=== PATIENT | female | born 1950 | race Caucasian/White ===

== ENCOUNTER → 2017-05-31 | Outpatient (CLI) | payer MEDICARE ==
[~2017-05-31] MED LIST: CALCIUM 1500 MG; CETI5; CYCL10; HYDACE25S PR; Hair, Skin & N1 EACH PO; Keflex500 MG PO; NAPR500 PO; POLY17UD PO; TRAM50; TRAM50 PO
== END ==
LOC: PLD 11:42 → LAB SHORT 11:42
DX: D23.60 Other benign neoplasm of skin of unspecified upper limb, including shoulder (principal)
CPT/HCPCS: 88305

== ENCOUNTER 2018-05-28 10:42 | Day surgery (SDC) | payer MEDICARE ==
[~2018-05-28] VITALS: Ht 167.6 cm; Wt 76.0 kg
[~2018-05-28 10:42] MED LIST changes: +Aspir 8181 MG PO; +BIOTIN5000 MC1 SL; +DOCU100 PO; +FISH OIL 1,0001 EAC1 PO; +FLAX PO; +IBUP600 PO; +LOSA50 PO; +Lovastatin20 MG PO; +Magnesium500 MG PO; +Red Yeast Rice600 MG PO; +VITAMIN D35000 UNI1 PO; +ZYRTEC10 M1 PO
--- NOTE | 2018-05-28 12:59 | NUR ---
05/28/18 1259 Cheryl Dewitt SIITING UP IN CHAIR, SIPPING JUICE AND EATING CATHERINE CRACKERS AND PUDDING. PP IN PLACE AT BEDSIDE
== END 2018-05-28 13:55 | disposition home or self-care (01) ==
LOC: ORSCSDS 10:42
PROVIDERS: Orthopaedic Surgery
PROC: 0SBC4ZZ Excision of Right Knee Joint, Percutaneous Endoscopic Approach (ICD-10-PCS; principal; 2018-05-28 11:45)
DX: S83.281A Other tear of lateral meniscus, current injury, right knee, initial encounter (principal); M65.9 Synovitis and tenosynovitis, unspecified; I10 Essential (primary) hypertension; Z87.891 Personal history of nicotine dependence; Z79.899 Other long term (current) drug therapy; Z79.82 Long term (current) use of aspirin
CPT/HCPCS: J0171; J0690; J1100; J1885; J2250; J2405; J3010; J7120

== ENCOUNTER 2018-12-11 23:57 | Observation (INO) | payer MEDICARE, OTHER ==
[~2018-12-11] VITALS: Ht 167.6 cm; Wt 77.1 kg
[2018-12-12 00:35] LABS: BASOPHILS ABSOLUTE AUTO 0.04 K/mm3 (0.00-0.23); BASOPHILS PERCENT AUTO 0 % (0-2); EOSINOPHILS ABSOLUTE AUTO 0.02 K/mm3 (0.00-0.68); EOSINOPHILS PERCENT AUTO 0 % (0-6); Hemoglobin 13.5 g/dL (11.5-16.0); IMMATURE GRAN ABSOLUTE AUTO 0.06 K/mm3 (0.00-0.10); IMMATURE GRAN PERCENT AUTO 0 % (0-1); LYMPHOCYTES ABSOLUTE AUTO 1.84 K/mm3 (0.84-5.20); LYMPHOCYTES PERCENT AUTO 12 % (21-46); MONOCYTES ABSOLUTE AUTO 0.52 K/mm3 (0.16-1.47); MONOCYTES PERCENT AUTO 3 % (4-13); Mean Corpuscular HGB 29.7 pg (26.0-34.0); Mean Corpuscular HGB Conc 32.9 g/dL (31.5-36.5); Mean Corpuscular Volume 90 fL (80-100); Mean Platelet Volume 10.6 fL (9.1-12.4); NEUTROPHILS ABSOLUTE AUTO 12.83 K/mm3 (1.96-9.15); NEUTROPHILS PERCENT AUTO 84 % (41-73); Platelet Count 306 K/mm3 (150-400); RDW Coefficient Variation 12.7 % (11.7-14.2); RDW Standard Deviation 41.5 fL (35.1-46.3); Red Blood Cell Count 4.54 M/mm3 (3.80-5.20); White Blood Cell Count 15.31 K/mm3 (4.00-11.30)
[2018-12-12 00:53] LABS: Alanine Aminotransfer (ALT/SGP 32 U/L (12-78); Albumin/Globulin Ratio 1.1 (0.8-1.8); Alk Phos 105 U/L (50-136); Anion Gap 7 mmol/L (6-16); Aspartate Aminotrans (AST/SGOT 23 U/L (12-37); Bilirubin, Total 0.4 mg/dL (0.1-1.0); Blood Urea Nitrogen 17 mg/dL (8-24); Bun/Creatinine Ratio 26.6 (12.0-20.0); CO2, Blood 24 mmol/L (21-32); Calcium, Blood 9.6 mg/dL (8.5-10.1); Chloride, Blood 107 mmol/L (98-108); Creatinine, Blood 0.64 mg/dL (0.40-1.00); Globulin, Blood 3.6 g/dL (2.2-4.0); Glomerular Filtration Rate >60 (60-); Glucose, Blood 149 mg/dL (70-99); Potassium, Blood 3.8 mmol/L (3.5-5.5); Sodium, Blood 138 mmol/L (136-145); Total Protein, Blood 7.6 g/dL (6.4-8.2)
--- NOTE | 2018-12-12 05:29 | NUR ---
PT HERE FROM ER BY VONNIE. TRANSFERRED WITH MULT ASSIST TO BED. PT A/O. PT REPORTS PAIN MUCH BETTER AT THIS TIME. PT REPORTS NAUSEA DOING BETTER AT THIS TIME. PT REPORTS HAVING DRY, SCRATCHY THROAT FROM HAVING DRY HEAVES PREVIOUSLY. PT PPX4, NO SORES NOTED TO HEELS OR BOTTOM. PT EDUCATED STIFF NECK LOADER LIGHT, ROOM, ECT. PT ASSISTED INTO GOWN WITH RN AND [facility] DIRECTOR. PT ASSISTED WITH ADL'S PRN. PT REMINDED OF CONT TO BE NPO.
--- NOTE | 2018-12-12 07:15 | NUR ---
PT AWAKE LAYING IN BED STATED NO ABD PAIN OR NAUSEA PT GIVEN A GALLBLADDER BOOK AWAITING DR FARIAS PLAN FOR OR LATER TODAY NPO INSTRUCTED PT TO CALL IF PAIN OR NAUSEA COMES BACK
--- NOTE | 2018-12-12 10:37 | NUR ---
pt talking with
--- NOTE | 2018-12-12 10:44 | NUR ---
DR FARIAS BY TO SEE PT
--- NOTE | 2018-12-12 11:23 | NUR ---
pt req pain meds 0.5 mg ivp dilaudid given along with zofran pt stated pain is 8/10
[2018-12-12 14:57] LABS: Source, Urine Clean Catch
[2018-12-12 15:03] LABS: Bilirubin, Urine Neg (Neg); Blood, Urine Neg (Neg); Glucose Qualitative, Urine Neg (Neg); Ketones, Urine Neg (Neg); Leukocyte Esterase, Urine 2+ (Neg); Nitrite, Urine Neg (Neg); Protein, Urine Neg (Neg); Specific Gravity, Urine 1.025 (1.003-1.022); Urobilinogen, Urine NORM (Normal)
[2018-12-12 15:08] LABS: Appearance, Urine Clear (Clear); Color, Urine Yellow (P-Yellow)
[2018-12-12 15:09] LABS: White Blood Cells, Urine 25-50 /hpf (0-5)
[2018-12-12 15:10] LABS: Bacteria Few /hpf; Red Blood Cells, Urine 0-2 /hpf (0-2); Squamous Epithelial Cells Few /hpf (Few)
--- NOTE | 2018-12-12 15:27 | NUR ---
offered pt pain meds stated pain is 6/10
--- NOTE | 2018-12-12 17:27 | NUR ---
INTO SDS VIA [facility]. PT REPORTS 09/19 ABDOMINAL PAIN. DENIES NAUSEA AT THIS TIME. HISTORY AND ALLERGIES REVIEWED. NPO STATUS CONFIRMED. LUNGS CLEAR.
--- NOTE | 2018-12-12 18:29 | NUR ---
DR. FARIAS AT BEDSIDE-SURGERY RESCHEDULED FOR TOMORROW. REPORT TO MARVEL CHAUDHARY-PT TRANSFERED BACK TO ROOM 229.
--- NOTE | 2018-12-12 18:46 | NUR ---
pt back to room surg postponed until thur am npo after mn ok for cl
--- NOTE | 2018-12-12 21:21 | NUR ---
2121: 18G PERIPHERAL IV IN LEFT HAND NOT PATENT AND DC'D; INFILTRATION GRADE LESS THAN 1". 2X2 GAUZE APPLIED AND WRAPPED WITH COBAN.
--- NOTE | 2018-12-13 11:59 | NUR ---
PT TO DAY SURGERY AT THIS TIME
--- NOTE | 2018-12-13 13:34 | NUR ---
PT UNABLE TO MAINTAIN O2SATS GREATER THAN 88% WITHOUT SUPPLEMENTAL OXYGEN. PLACED PT ON 2LNC AFTER REPOSITIONING, ENC DBC, CHECKING EQUIPMENT, CHANGING POSTION OF PROBE ETC. EDUCATED IS USE. MED FOR PAIN 10/20. UP TO BATHROOM AT 1336./ REPORT TO PATRICIA. SPOKE TO DR RAMOS REGARDING ITCHY NOSE WITH NARCOTICS.
--- NOTE | 2018-12-13 13:36 | NUR ---
Patient up to Ambulate independently. Gait steady. Surgical site prepped with 2% Chlorhexidine cloth wipe. History, Chart, Medications and Allergies reviewed before start of procedure.Lungs clear T/O to Auscultation. Patient confirms NPO status and agrees with scheduled surgery.DENTURES AND GLASSES LEFT IN ROOM WITH ALL OTHER BELONINGS. DAUGHTER RAEGAN AT BEDSIDE.
--- NOTE | 2018-12-13 13:45 | NUR ---
ASSUMED CARE. PT UP TO BATHROOM WITH SBA, TOLERATED WELL. BACK TO BED RECHECKED SATS ON ROOM AIR, SAT LEVEL 89%, APPLIED 02 2L/NC.
--- NOTE | 2018-12-13 14:28 | NUR ---
12/13/18 1428 Palomo Altamirano PT ON SCHEDULED ANTIBIOTICS
--- NOTE | 2018-12-13 16:04 | NUR ---
POST OP S/P LAP LUCA TODAY. X4 LAP SITES TO ABD WITH STERI STRIPS. SCANT OOZING TO UMBILICAL SITE AND REINFORCED WITH BANDAID. PT REPORTS MINIMAL PAIN AND DENIES N/V. ON 2L VIA NC AND PLANNING TO WEAN OFF. ENC DEEP BREATHING AND I/S IS AT BEDSIDE. OFFERING SIPS OF CLEARS. POST OP VS IN PROGRESS AND STABLE. FAMILY AT BEDSIDE FOR SUPPORT, CALL LIGHT WITHIN REACH.
--- NOTE | 2018-12-14 04:44 | NUR ---
SUMMARY: POD [address] RAMOS. VSS, AFEBRILE, TOLRATING SMALL PORTIONS OF REGULAR DIET AND PASSING MINIMAL AMOUNTS OF FLATUS. PT HAD DIFFICULTY COMPLETELY EMPTYING BLADDER EARLY IN SHIFT BUT AFTER SITTING UP TO CHAIR AND UP IN ROOM PT VOIDING WELL. PAIN WELL CONTROLLED WITH 1-2 TABS PERCOCET AND 1MG DILAUDID. ENCOURAGE AMBULATION IN HALLS AND ANTICIPATE DC HOME LATER THIS DAY.
--- NOTE | 2018-12-14 10:20 | NUR ---
pt up to bathroom then to chair still on o2 will trial off at 1200
--- NOTE | 2018-12-14 12:50 | NUR ---
BIOX RA 91-94% SITTING IN CHAIR
--- NOTE | 2018-12-14 14:28 | NUR ---
PT EMIL IN HALLWAY WITH HER DAUGHTER BACK TO ROOM SITTING UP IN CHAIR
--- NOTE | 2018-12-14 15:35 | NUR ---
dr laboy by to see pt
[2018-12-14] MEDS ORDERED: OXYC5 PO (15:52)
--- NOTE | 2018-12-14 16:21 | NUR ---
DISCHARGE INSTRUCTIONS REVIEWED WITH PT VERBALIZED RX GIVE NO ACUTE CHANGES WC ESCORT TO CAR
== END 2018-12-14 16:32 | disposition home or self-care (01) ==
LOC: ER 23:57 → SURS 23:58
PROVIDERS: Emergency Medicine; Surgery; ADMIT Surgery
PROC: BF13YZZ Fluoroscopy of Gallbladder and Bile Ducts using Other Contrast (ICD-10-PCS; 2018-12-13)
PROC: 0FT44ZZ Resection of Gallbladder, Percutaneous Endoscopic Approach (ICD-10-PCS; principal; 2018-12-13 13:00)
DX: K80.01 Calculus of gallbladder with acute cholecystitis with obstruction (principal); I10 Essential (primary) hypertension; E78.00 Pure hypercholesterolemia, unspecified; Z79.899 Other long term (current) drug therapy; Z88.5 Allergy status to narcotic agent; Z87.891 Personal history of nicotine dependence
CPT/HCPCS: 74176; 74300; 76705; 80053; 81001; 83690; 84484; 85025; 87086; 88304; 93005; 93010; 96361; 96365; 96366; 96375; 96376; 99285; C1729; G0378; J1170; J2250; J2405; J2543; J2550; J2704; J2710; J3010; J7030; J7120

== ENCOUNTER 2019-01-22 07:05 | Day surgery (SDC) | payer MEDICARE ==
[~2019-01-22] VITALS: Ht 167.6 cm; Wt 76.4 kg
[~2019-01-22 07:05] MED LIST changes: +OXYC5 PO
== END 2019-01-22 09:03 | disposition home or self-care (01) ==
LOC: ORSCSDS 07:05
PROVIDERS: Surgery
PROC: 0DJD8ZZ Inspection of Lower Intestinal Tract, Via Natural or Artificial Opening Endoscopic (ICD-10-PCS; principal; 2019-01-22 08:15)
DX: Z12.11 Encounter for screening for malignant neoplasm of colon (principal); Z86.010 Personal history of colon polyps; I10 Essential (primary) hypertension; E78.5 Hyperlipidemia, unspecified; Z87.891 Personal history of nicotine dependence; Z79.82 Long term (current) use of aspirin; Z79.899 Other long term (current) drug therapy
CPT/HCPCS: J0330; J0461; J2405; J2704; J7120

== ENCOUNTER 2020-06-22 15:04 | Emergency (ER) | payer MEDICARE ==
[~2020-06-22] VITALS: Ht 167.6 cm; Wt 74.8 kg
[2020-06-22] MEDS ORDERED: MIRALAX17 GM PO (15:34)
[2020-06-22 15:55] LABS: BASOPHILS ABSOLUTE AUTO 0.06 K/mm3 (0.00-0.23); BASOPHILS PERCENT AUTO 0 % (0-2); EOSINOPHILS ABSOLUTE AUTO 0.02 K/mm3 (0.00-0.68); EOSINOPHILS PERCENT AUTO 0 % (0-6); Hematocrit 36.5 % (33.0-51.0); Hemoglobin 11.6 g/dL (11.5-16.0); IMMATURE GRAN ABSOLUTE AUTO 0.07 K/mm3 (0.00-0.10); IMMATURE GRAN PERCENT AUTO 0 % (0-1); LYMPHOCYTES ABSOLUTE AUTO 1.35 K/mm3 (0.84-5.20); LYMPHOCYTES PERCENT AUTO 8 % (21-46); MONOCYTES PERCENT AUTO 5 % (4-13); Mean Corpuscular HGB 28.9 pg (26.0-34.0); Mean Corpuscular HGB Conc 31.8 g/dL (31.5-36.5); Mean Corpuscular Volume 91 fL (80-100); Mean Platelet Volume 8.8 fL (9.1-12.4); NEUTROPHILS ABSOLUTE AUTO 15.57 K/mm3 (1.96-9.15); NEUTROPHILS PERCENT AUTO 87 % (41-73); Platelet Count 821 K/mm3 (150-400); RDW Coefficient Variation 15.9 % (11.7-14.2); RDW Standard Deviation 51.9 fL (35.1-46.3); Red Blood Cell Count 4.02 M/mm3 (3.80-5.20); White Blood Cell Count 17.97 K/mm3 (4.00-11.30)
[2020-06-22 16:18] LABS: Alanine Aminotransfer (ALT/SGP 27 U/L (12-78); Albumin, Blood 3.2 g/dL (3.4-5.0); Albumin/Globulin Ratio 0.7 (0.8-1.8); Alk Phos 241 U/L (50-136); Anion Gap 6 mmol/L (6-16); Aspartate Aminotrans (AST/SGOT 22 U/L (12-37); Bilirubin, Total 0.7 mg/dL (0.1-1.0); Blood Urea Nitrogen 23 mg/dL (8-24); Bun/Creatinine Ratio 39.1 (12.0-20.0); CO2, Blood 27 mmol/L (21-32); Calcium, Blood 9.1 mg/dL (8.5-10.1); Chloride, Blood 104 mmol/L (98-108); Creatinine, Blood 0.59 mg/dL (0.40-1.00); Globulin, Blood 4.4 g/dL (2.2-4.0); Glomerular Filtration Rate >60 (60-); Glucose, Blood 108 mg/dL (70-99); Potassium, Blood 3.8 mmol/L (3.5-5.5); Sodium, Blood 137 mmol/L (136-145); Total Protein, Blood 7.6 g/dL (6.4-8.2)
[2020-06-22] MEDS ORDERED: Golytely Packe1 EACH PO (19:23)
== END 2020-06-22 19:55 | disposition home or self-care (01) ==
LOC: ER 15:04
PROVIDERS: Emergency Medicine
DX: K56.41 Fecal impaction (principal); I10 Essential (primary) hypertension; Z87.891 Personal history of nicotine dependence
CPT/HCPCS: 36415; 74176; 80053; 83690; 85025; 96374; 99284-25; A9270; J1885

== ENCOUNTER 2022-05-03 12:12 | Day surgery (SDC) | payer MEDICARE ==
[~2022-05-03] VITALS: Ht 167.6 cm; Wt 74.2 kg
[~2022-05-03 12:12] MED LIST changes: +Golytely Packe1 EACH PO; +MIRALAX17 GM PO
[2022-05-03] MEDS ORDERED: METF500 PO (12:25)
--- NOTE | 2022-05-03 12:28 | NUR ---
05/03/22 1228 Gloria Jasso CALL LIGHT WITHIN REACH. TETRACAINE IN AT 1226 IN RIGHT EYE AND PLEDGETT IN AT 1227
== END 2022-05-03 14:15 | disposition home or self-care (01) ==
LOC: ORSCSDS 12:12
PROVIDERS: Ophthalmology
PROC: 08DJ3ZZ Extraction of Right Lens, Percutaneous Approach (ICD-10-PCS; principal; 2022-05-03 13:30)
DX: H25.11 Age-related nuclear cataract, right eye (principal); Z96.1 Presence of intraocular lens; I10 Essential (primary) hypertension; R73.03 Prediabetes; K21.9 Gastro-esophageal reflux disease without esophagitis; Z87.891 Personal history of nicotine dependence; Z79.84 Long term (current) use of oral hypoglycemic drugs; Z79.899 Other long term (current) drug therapy
CPT/HCPCS: 82947; J2001; J2250; J3010; J3301; J7040; V2632

== ENCOUNTER → 2023-03-17 | Outpatient (CLI) | payer MEDICARE ==
[~2023-03-17] MED LIST changes: +METF500 PO
== END | disposition home or self-care (01) ==
LOC: LAB 07:33 → LAB SHORT 07:33
DX: L98.6 Other infiltrative disorders of the skin and subcutaneous tissue (principal)
CPT/HCPCS: 88305